=== PATIENT | male | born 1970 | race Caucasian/White ===

== ENCOUNTER 2018-05-12 06:47 | Day surgery (SDC) | payer MEDICAID ==
[2018-05-05 12:10] VITALS: BMI 28.7
[2018-05-12] MEDS ORDERED: Propofol 10 mg/ml Inj (20 ML) ONE ×2 (07:23→10:26)
[2018-05-12] MEDS ORDERED: Midazolam 2 MG/2 ML VIAL ONE (07:23)
[2018-05-12] MEDS ORDERED: ceFAZolin IV 1 gm in Dextrose 2 GM/100 ML BAG IVPB ONE (07:27)
[2018-05-12] MEDS ORDERED: Lidocaine/Epinephrine 1% 1:100000 10 ML IJ ONE (07:28)
[2018-05-12] MEDS ORDERED: Rocuronium 10 mg/ml (5 ml) ONE ×2 (07:31→09:15)
[2018-05-12] MEDS: Bupivacaine 0.25% 20 ML INJ IJ ONE ×3 (08:34→10:11)
[2018-05-12] MEDS ORDERED: Neostigmine Methylsulfate 3mg/3ml Syringe IV ONE (09:15)
[2018-05-12] MEDS ORDERED: Lactated Ringer's 1,000 ML IV SCH (10:45)
--- NOTE | 2018-05-12 10:48 | PCM.SURG1 ---
Surgeon's Initial Post Op Note - Surgeon's Notes Surgeon: Dr. Toscano [employer] Crewmember: placido Johnston Type of Anesthesia: General Endo, Block Regional, Local Anesthesia Administered By: Carroll Pre-Operative Diagnosis: b/l inguinal hernia Operative Findings: b/l inguinal hernia direct, umbilical hernia Post-Operative Diagnosis: SAMe Operation Performed: robotic inguinal hernia repair w mesh, umbilical hernia repair Specimen/Specimens Removed: hernia sac lipoma Estimated Blood Loss: EBL {In ML}: 10 Blood Products Given: N/A Drains Used: No Drains Post-Op Condition: Good Date of Surgery/Procedure: 05/12/18 Time of Surgery/Procedure: 10:47
[2018-05-12 12:58] VITALS: O2SAT 96
[2018-05-12] MEDS ORDERED: Oxycodone/Acetaminophen 5/325 mg Tab PO STA (14:08)
[2018-05-12 15:54] VITALS: BP 110/70; PULSE 82; RESP 18; TEMP 97.8
--- NOTE | 2018-05-12 21:10 | OP ---
PROCEDURE DATE: 05/12/2018 PREOPERATIVE DIAGNOSIS: Bilateral inguinal hernia. POSTOPERATIVE DIAGNOSES: 1. Bilateral direct inguinal hernia. 2. Bilateral lipoma of the sac. PROCEDURE DONE: 1. Robotic right inguinal hernia repair with mesh. 2. Robotic left inguinal hernia repair with mesh. 3. Robotic bilateral excision of the lipoma of the sac. 4. Laparoscopic bilateral transversus abdominis plane blocks placement. 5. Open umbilical hernia repair, primary closure. SURGEON: Jona Sharif MD FLAT DRIER: Itzel Johnston DO, PGY-3 resident. ANESTHESIA: General endotracheal tube anesthesia. ESTIMATED BLOOD LOSS: Around 10 mL. DRAIN: None. PATHOLOGY: The lipoma of the sac on the both side was sent for the pathology. COMPLICATIONS: None. INTRAOPERATIVE FINDINGS: The patient had bilateral direct inguinal hernia with lipoma of the sac. On intraoperative steps, this is a 47-year-old male who was diagnosed with bilateral inguinal hernia and the patient was consented for the robotic bilateral inguinal hernia repair with a mesh, brought to the OR, placed supine on operating table. After induction of anesthesia, the abdomen was prepped and draped in usual sterile fashion and supraumbilical incision was made after incising the skin, subcutaneous tissue, and the fascia. After incising skin and subcutaneous tissue the patient found to have umbilical hernial sac and defect and the port was placed through the umbilical defect and pneumo was created. Another 3 mm port was placed in upper abdomen. Robot was brought in. Camera arm as well as arm 1 and arm 2 was docked and the peritoneum was dissected from the right ASIS up to the left ASIS and the dissection was continued in the midline up to the space of Retzius laterally to the lateral abdominal wall. The vas deferens and spermatic cord vessels was identified. The hernial sac and content was reduced back into peritoneal cavity. The lipoma was also excised. Now the similar dissection was done on the left side, the peritoneum was dissected from the lateral abdominal wall. Vas deferens and spermatic cord vessels was identified and . Inferior dissection was done on the both sides up to the pelvic brim and the large hernial sac was reduced back into peritoneal cavity. The lipoma of the sac was also reduced and it was excised. Now the both sided mesh was placed. The first right side mesh was implanted, then the left side mesh was implanted and the peritoneum was sutured with 0 Vicryl as well as 3-0 V-Loc PDS continuous suture. The specimen was sent off the table for the pathology. Now the procedure was converted to laparoscopy after undocking the instrument and the robot and the bilateral TAP block was given, 30:30 mL of Marcaine was injected in the transverse abdominal muscle plane block and all the instrument was taken out. Pneumo was deflated. Now the umbilical hernial sac and defect was dissected and the defect was approximately 1 x 0.5 cm and the defect was primarily closed with multiple 0-Prolene sutures in the interrupted fashion. All the wound was closed in a two-layer, the subcutaneous with a 2-0 Vicryl, skin with a 4-0 Monocryl and dry sterile dressing was applied. The patient tolerated the procedure well. Count of instrument and gauze was correct. There was no apparent complication. The patient was extubated in OR and sent to the postanesthesia care in stable condition. Jona Toscano MD
== END 2018-05-12 16:25 | disposition home or self-care (01) ==
LOC: C.SDS 06:47
PROVIDERS: ATTEND Surgery Surgical Critical Care
DX: K40.20 Bilateral inguinal hernia, without obstruction or gangrene, not specified as recurrent (principal); D17.6 Benign lipomatous neoplasm of spermatic cord; K42.9 Umbilical hernia without obstruction or gangrene
CPT/HCPCS: 49585; 49650; 55559; 88304; J0690; J1100; J2001; J2250; J2270; J2405; J2704; J2710; J3010; J7120